=== PATIENT | male | born 1985 ===

== ENCOUNTER 2017-04-16 09:44 | Day surgery (SDC) | payer OTHER ==
[2017-04-16 11:12] VITALS: BMI 31.1
--- NOTE | 2017-04-16 12:40 | CP.SDSHP ---
Same Day Surgery H & P - History Proposed Procedure: colonoscopy Pre-Op Diagnosis: colon cancer survellience - Previous Medical/Surgical History Previous Surgical History: sigmoidectomy - Allergies Allergies: Allergies avocado Allergy (Verified 08/13/16 23:59) SWELLING seasonal allergies Allergy (Uncoded 08/13/16 23:59) CONGESTION sneezing - Physical Exam General Appearance: no acute distress Vital Signs: Vital Signs 04/16/17 11:13 Temperature 98.6 F Pulse Rate 80 Respiratory 20 Rate Blood Pressure 138/81 O2 Sat by Pulse 97 Oximetry Mental Status: Alert & Oriented x3 Neuro: WNL Heart: WNL Lungs: WNL GI: WNL - {Optional Preform as Required} Abdomen: WNL Integument: WNL - Impression Impression: colon cancer servelliance Pt. Evaluated Today:Candidate for Anesthesia & Procedure: Yes - Date & Time Date: 04/16/17 Time: 12:00 Short Stay Discharge - Short Stay Discharge Admitting Diagnosis/Reason for Visit: MALIGNANT NEOPLASM COLON / RECTAL HEMORRHAGE Disposition: HOME/ ROUTINE
[2017-04-16] MEDS ORDERED: Lactated Ringer's 500 ML IV SCH (13:30)
[2017-04-16] MEDS ORDERED: Lactated Ringer's 1,000 ML IV ONE (13:30)
[2017-04-16] MEDS ORDERED: Propofol 10 mg/ml Inj (20 ML) ONE (13:30)
[2017-04-16 14:10] VITALS: TEMP 98.1; O2SAT 98
[2017-04-16 15:06] VITALS: BP 114/71; PULSE 78; RESP 19
== END 2017-04-16 15:00 | disposition home or self-care (01) ==
LOC: C.ENDO 09:44
PROVIDERS: ATTEND Internal Medicine Gastroenterology
DX: Z12.11 Encounter for screening for malignant neoplasm of colon (principal); K63.3 Ulcer of intestine; Z85.038 Personal history of other malignant neoplasm of large intestine
CPT/HCPCS: 45380; 88305; J2704; J7120

== ENCOUNTER 2017-06-18 09:49 | Day surgery (SDC) | payer OTHER ==
[2017-06-18 10:13] VITALS: BMI 33.0
[2017-06-18] MEDS ORDERED: Lactated Ringer's 1,000 ML IV ONE (11:21)
[2017-06-18] MEDS ORDERED: Propofol 10 mg/ml Inj (20 ML) ONE ×2 (11:23→11:34)
[2017-06-18] MEDS ORDERED: Lidocaine Hydrochloride 5 ML INJ ONE (11:24)
[2017-06-18 14:00] VITALS: TEMP 96
[2017-06-18 14:02] VITALS: O2SAT 97
[2017-06-18 14:18] VITALS: BP 129/82; PULSE 88; RESP 21
== END 2017-06-18 13:00 | disposition home or self-care (01) ==
LOC: C.ENDO 09:49
PROVIDERS: ATTEND Internal Medicine Gastroenterology
DX: R13.10 Dysphagia, unspecified (principal); K29.50 Unspecified chronic gastritis without bleeding; K44.9 Diaphragmatic hernia without obstruction or gangrene; K31.9 Disease of stomach and duodenum, unspecified; K62.5 Hemorrhage of anus and rectum; Z85.038 Personal history of other malignant neoplasm of large intestine; Z80.0 Family history of malignant neoplasm of digestive organs; Z80.3 Family history of malignant neoplasm of breast
CPT/HCPCS: 43239; 88305; J2001; J2704; J7120